=== PATIENT | female | born 1980 | race Two or more races ===

== ENCOUNTER 2017-07-12 22:58 | Emergency (ER) | payer OTHER ==
[~2017-07-12] VITALS: Ht 160 cm; Wt 59.0 kg
[~2017-07-12 22:58] MED LIST: CEFTIN500 MG PO; DYMISTA NASAL S23 GM NS; FLONASE16 GM NS; METHYLDOPA 250 MG; PREVACID30 MG PO; ZANTAC300 MG PO; ZYRTEC10 MG PO
== END 2017-07-13 12:08 | disposition home or self-care (01) ==
LOC: ER 22:58
DX: K52.89 Other specified noninfective gastroenteritis and colitis (principal); K62.5 Hemorrhage of anus and rectum

== ENCOUNTER 2018-08-20 10:49 | Inpatient (IN) | payer OTHER ==
[~2018-08-20] VITALS: Ht 160 cm; Wt 63.0 kg
[2018-09-15] MEDS ORDERED: FERROUS FUMARATE PO (08:37)
== END 2018-09-17 13:55 | disposition home or self-care (01) | DRG 807 ==
LOC: LDR 08-27 11:30 → OB/GYN 09-15 08:09 → LDR 09-17 11:30 → OB/GYN 09-17 13:55
PROVIDERS: ADMIT Obstetrics & Gynecology
PROC: 10E0XZZ Delivery of Products of Conception, External Approach (ICD-10-PCS; principal; 2018-09-15)
PROC: 0KQM0ZZ Repair Perineum Muscle, Open Approach (ICD-10-PCS; 2018-09-15)
PROC: 4A1HXCZ Monitoring of Products of Conception, Cardiac Rate, External Approach (ICD-10-PCS; 2018-09-15)
PROC: 3E033VJ Introduction of Other Hormone into Peripheral Vein, Percutaneous Approach (ICD-10-PCS; 2018-09-15)
DX: O70.1 Second degree perineal laceration during delivery (principal); Z37.0 Single live birth; Z3A.39 39 weeks gestation of pregnancy; Z22.330 Carrier of Group B streptococcus

== ENCOUNTER 2018-09-19 18:01 | Emergency (ER) | payer OTHER ==
[~2018-09-19] VITALS: Ht 160 cm; Wt 0.5 kg
[~2018-09-19 18:01] MED LIST changes: +FERROUS FUMARATE PO
== END 2018-09-19 21:51 | disposition home or self-care (01) ==
LOC: ER 18:01
DX: I16.0 Hypertensive urgency (principal); I10 Essential (primary) hypertension; N39.0 Urinary tract infection, site not specified

== ENCOUNTER 2024-07-30 23:39 | Emergency (ER) | payer OTHER ==
[~2024-07-30] VITALS: Ht 160 cm; Wt 62.1 kg
[2024-07-31] MEDS ORDERED: METOTEXATE (00:19)
[2024-07-31] MEDS ORDERED: FAMOTIDINE/PF 20 MG in 0.9 % SODIUM CHLORIDE 8 ML IV PUSH STA (03:10)
[2024-07-31] MEDS ORDERED: SUCRALFATE 1 G TABLET PO ONE (03:15)
[2024-07-31] MEDS ORDERED: KETOROLAC TROMETHAMINE 30 MG VIAL IV ONE (03:15)
[2024-07-31] MEDS ORDERED: FAMOTIDINE/PF 20 MG/2 ML VIAL ONE (03:16)
[2024-07-31] MEDS ORDERED: KETOROLAC TROMETHAMINE 30 MG VIAL ONE (03:16)
[2024-07-31 03:54] LABS: BASO % 0.9 % (0.1-1.2); EOS # 0.68 (0.04-0.54); EOS % 7.5 % (0.7-7.0); HEMATOCRIT 35.3 % (34.1-44.9); LYMPH # 2.88 (1.18-3.74); LYMPH % 31.6 % (19.3-53.1); MEAN CORPUSCULAR HEMOGLOBIN 23.2 pg (25.6-32.2); MONO # 0.81 (0.24-0.82); MONO % 8.9 % (4.7-12.5); NEUT # 4.65 (1.56-6.13); PLATELET COUNT 358 K/uL (163-369); RED BLOOD COUNT 4.75 M/uL (3.93-5.22); RED CELL DISTRIBUTION WIDTH 17.1 % (11.6-14.4)
[2024-07-31 04:05] LABS: ALBUMIN 3.5 gm/dL (3.4-5.0); BILIRUBIN TOTAL 0.41 mg/dL (0.3-1.2); CALCIUM 8.9 mg/dL (8.5-10.1); CREATININE SERUM 0.54 mg/dL (0.55-1.02); GFR 124.41; GLOBULINA 3.7 G/DL (2.4-3.5); POTASSIUM 4.53 mEq/L (3.5-5.1); TOTAL PROTEIN 7.2 gm/dL (6.4-8.2)
[2024-07-31] MEDS ORDERED: LEVSIN/SL0.125 MG SL (04:21)
[2024-07-31] MEDS ORDERED: PEPCID AC20 MG PO (04:21)
[2024-07-31] MEDS ORDERED: CARAFATE1 GM PO (04:21)
== END 2024-07-31 04:32 | disposition home or self-care (01) ==
LOC: ER 07-31
PROVIDERS: General Practice
DX: K29.70 Gastritis, unspecified, without bleeding (principal); Z91.013 Allergy to seafood
CPT/HCPCS: 36415; 96365; J1885; J3490

== ENCOUNTER 2024-08-02 15:57 | Outpatient (CLI) | payer OTHER ==
[2024-08-02 10:41] LABS: BASO % 1.3 % (0.1-1.2); EOS # 0.45 (0.04-0.54); EOS % 7.2 % (0.7-7.0); HEMATOCRIT 36.4 % (34.1-44.9); HEMOGLOBIN 11.3 g/dL (11.2-15.7); LYMPH # 1.72 (1.18-3.74); LYMPH % 27.4 % (19.3-53.1); MEAN CORPUSCULAR HEMOGLOBIN 23.2 pg (25.6-32.2); MONO # 0.59 (0.24-0.82); MONO % 9.4 % (4.7-12.5); NEUT # 3.42 (1.56-6.13); NEUT % 54.5 % (34.0-71.1); PLATELET COUNT 356 K/uL (163-369); RED BLOOD COUNT 4.88 M/uL (3.93-5.22); RED CELL DISTRIBUTION WIDTH 17.1 % (11.6-14.4)
[2024-08-02 11:17] LABS: INR 1.04; PARTIAL THROMBOPLASTIN TIME 26.4 SECONDS (22.0-34.0); PROTHROMBIN TIME 11.3 SECONDS (9.0-11.5)
[2024-08-02 11:20] LABS: ob NEGATIVE (NEGATIVE)
[2024-08-02 11:29] LABS: ALBUMIN 3.6 gm/dL (3.4-5.0); BILIRUBIN TOTAL 0.72 mg/dL (0.3-1.2); CALCIUM 8.9 mg/dL (8.5-10.1); CREATININE SERUM 0.64 mg/dL (0.55-1.02); GFR 102.26; GLOBULINA 3.6 G/DL (2.4-3.5); POTASSIUM 3.77 mEq/L (3.5-5.1); TOTAL PROTEIN 7.2 gm/dL (6.4-8.2)
[2024-08-02 11:31] LABS: C-REACTIVE PROTEIN 0.34 MG/DL (0.00-0.29)
[2024-08-02 12:01] LABS: ERYTHROCYTE SEDIMENTATION RATE 23 mm/hr (0-20)
== END 2024-08-02 15:59 | disposition home or self-care (01) ==
LOC: LAB 15:57
PROVIDERS: ATTEND Obstetrics & Gynecology
DX: R80.9 Proteinuria, unspecified (principal); Z12.11 Encounter for screening for malignant neoplasm of colon; B96.81 Helicobacter pylori [H. pylori] as the cause of diseases classified elsewhere; K29.70 Gastritis, unspecified, without bleeding; M06.9 Rheumatoid arthritis, unspecified; N91.1 Secondary amenorrhea; Z01.818 Encounter for other preprocedural examination; I10 Essential (primary) hypertension

== ENCOUNTER → 2024-08-02 | Outpatient (CLI) | payer OTHER ==
[~2024-08-02] MED LIST changes: +CARAFATE1 GM PO; +LEVSIN/SL0.125 MG SL; +METOTEXATE; +PEPCID AC20 MG PO
== END | disposition home or self-care (01) ==
LOC: LAB 07:54 → RAD 07:56
PROVIDERS: ATTEND Obstetrics & Gynecology
DX: R10.9 Unspecified abdominal pain (principal); R05.9 Cough, unspecified; R07.9 Chest pain, unspecified

== ENCOUNTER 2024-08-10 07:16 | Day surgery (SDC) | payer OTHER ==
[2024-08-10] MEDS ORDERED: CHLORHEXIDINE GLUCONATE 120 ML BOTTLE TOP ONE (14:05)
[2024-08-10] MEDS ORDERED: MORPHINE SULFATE 4 MG/ML VIAL IV ONE (14:30)
[2024-08-10] MEDS ORDERED: PROMETHAZINE HCL 50 MG/ML AMPUL IM ONE (14:45)
[2024-08-10] MEDS ORDERED: MORPHINE SULFATE 4 MG/ML VIAL IV PRN (14:45)
== END 2024-08-10 19:25 | disposition home or self-care (01) ==
LOC: CIR.AMB 07:16
PROVIDERS: ATTEND Obstetrics & Gynecology
DX: N84.0 Polyp of corpus uteri (principal)